=== PATIENT | male | born 1960 | race African-American/Black ===

== ENCOUNTER → 2016-12-16 | Outpatient (CLI) | payer OTHER ==
--- NOTE | 2016-12-16 09:39 | WOMENS IMAGING REPORT ---
EXAM DESCRIPTION: BONE DENSITY HIP/SPINE COMPLETED DATE/TIME: 12/16/2016 8:39 am REASON FOR STUDY: M81.0 M81.0 AGE-RELATED OSTEOPOROSIS W/O CURRENT PATHOLOGICAL FRAC COMPARISON: 2013 TECHNIQUE: Dual-Energy X-ray Absorptiometry (DEXA) of the AP Spine and Hip. LIMITATIONS: None. FINDINGS: LUMBAR SPINE: The bone mineral density (BMD) measured from L1-L4 in the AP projection correlates with a T-score of -2.1, which is osteopenic as defined by the World Health Organization. This represents a 9% decline in bone density compared to 2013 HIP: The bone mineral density (BMD) measured in the left femoral neck at the hip correlates with a T-score of -2.5, which is osteoporotic as defined by the World Health Organization. This is stable compared to 2013 IMPRESSION: 1. LUMBAR SPINE: Osteopenic 2. HIP: Osteoporotic COMMENT: The World Health Organization defines low BMD as follows: T-score: Normal: Greater than -1.0 Osteopenia: Between -1.0 and -2.5 Osteoporosis: Less than -2.5 without fractures Established osteoporosis: Less than -2.5 with fractures In general, you may wish to consider: Diagnosis Treatment Follow-up DEXA Normal BMD Prevention 2-3 years Osteopenia Prevention/Therapy 1-2 years Osteoporosis Therapy Yearly TECHNICAL DOCUMENTATION: JOB ID: [id number] [employer]- All Rights Reserved
== END ==
LOC: WI 07:52
PROVIDERS: ATTEND Internal Medicine
DX: M81.0 Age-related osteoporosis without current pathological fracture (principal)
CPT/HCPCS: 77080

== ENCOUNTER 2018-02-25 09:22 | Emergency (ER) | payer OTHER ==
[2018-02-25] MEDS ORDERED: HYDROCODONE/ACETAMINOPHEN 7.5-325 MG TABLET PO ONE (10:10)
--- NOTE | 2018-02-25 10:14 | ER Document Report ---
ED Medical Screen (RME) - General Chief Complaint: Leg Pain Stated Complaint: RIGHT LEG PAIN Time Seen by Provider: 02/25/18 10:08 Mode of Arrival: Ambulatory Information source: Patient Notes: Patient complained of 10 days of rash on the lower extremities bilaterally. He said the rash started 4 days after he was given an immunosuppressive medication for his Crohn's disease. He said the pain is shooting and tingling and very painful. He said he saw a registered pharmacist and they did a biopsy and told the patient that the rash is from his medication. He was advised to stop that medication. However upon stopping the medication the rash has gotten worse and has not gotten better. Now he has got to the point where the patient cannot walk because of the swelling and the pain on his lower extremities. I have greeted and performed a rapid initial assessment of this patient. A comprehensive ED assessment and evaluation of the patient, analysis of test results and completion of the medical decision making process will be conducted by additional ED providers. TRAVEL OUTSIDE OF THE [place] IN LAST 30 DAYS: No - Related Data Allergies/Adverse Reactions: No Known Allergies Allergy (Unverified 06/08/12 23:11) Past Medical History - Social History Chew tobacco use (# tins/day): No Frequency of alcohol use: None Drug Abuse: None - Past Medical History Cardiac Medical History: Denies: Hx Coronary Artery Disease, Hx Heart Attack, Hx Hypertension Pulmonary Medical History: Reports: Hx Asthma, Hx Pneumonia Denies: Hx Bronchitis, Hx COPD Neurological Medical History: Denies: Hx Cerebrovascular Accident, Hx Seizures Renal/ Medical History: Denies: Hx Peritoneal Dialysis GI Medical History: Reports: Hx Crohn's Disease Musculoskeltal Medical History: Reports Hx Arthritis - ALL OVER, Reports Hx Muscle Spasm Psychiatric Medical History: Reports: Hx Anxiety Past Surgical History: Reports: Hx Bowel Surgery - ENDOSCOPIES, Hx Colostomy, Hx Neurologic Surgery, Hx Rectal Surgery. Denies: Hx Pacemaker - Immunizations Hx Diphtheria, Pertussis, Tetanus Vaccination: Yes - 2008 Physical Exam - Vital signs Vitals: Temp Pulse Resp BP Pulse Ox 97.8 F 101 H 16 112/79 100 02/25/18 09:28 02/25/18 09:28 02/25/18 09:28 02/25/18 09:28 02/25/18 09:28 Course - Vital Signs Vital signs: Temp Pulse Resp BP Pulse Ox 97.8 F 101 H 16 112/79 100 02/25/18 09:28 02/25/18 09:28 02/25/18 09:28 02/25/18 09:28 02/25/18 09:28 Doctor's Discharge - Discharge Referrals: MILO JAMISON [Primary Care Provider] - Follow up as needed
[2018-02-25 10:59] LABS: ABSOLUTE EOSINOPHILS # (AUTO) 0.5 10^3/uL (0.0-0.6); ABSOLUTE LYMPHOCYTES (AUTO) 2.8 10^3/uL (0.5-4.7); ABSOLUTE MONOCYTES (AUTO) 0.8 10^3/uL (0.1-1.4); ABSOLUTE NEUT (AUTO) 3.1 10^3/uL (1.7-8.2); BASOPHILS % (AUTO) 0.6 % (0-2); EOSINOPHILS % (AUTO) 6.4 % (0-6); HEMATOCRIT 39.4 % (37.9-51.0); HEMOGLOBIN 12.8 g/dL (13.5-17.0); LYMPHOCYTES % (AUTO) 38.9 % (13-45); MEAN CORPUSCULAR HEMOGLOBIN 25.4 pg (27.0-33.4); MEAN CORPUSCULAR HGB CONC 32.6 g/dL (32.0-36.0); MEAN CORPUSCULAR VOLUME 78 fl (80-97); MONOCYTES % (AUTO) 11.7 % (3-13); PLATELET COUNT 527 10^3/uL (150-450); RED BLOOD COUNT 5.05 10^6/uL (4.35-5.55); RED CELL DISTRIBUTION WIDTH 19.5 % (11.5-14.0); SEGMENTED NEUTROPHILS % (AUTO) 42.4 % (42-78); TOTAL CELLS COUNTED % (AUTO) 100 %; WHITE BLOOD COUNT 7.3 10^3/uL (4.0-10.5)
[2018-02-25 11:05] LABS: INTERNATIONAL RATION (INR) 0.94
[2018-02-25 11:16] LABS: ALANINE AMINOTRANSFERASE 31 U/L (21-72); ALBUMIN 2.2 g/dL (3.5-5.0); ALKALINE PHOSPHATASE 69 U/L (38-126); ASPARTATE AMINO TRANSFERASE 34 U/L (17-59); BILIRUBIN,DIRECT 0.3 mg/dL (0.0-0.4); BILIRUBIN,TOTAL 0.3 mg/dL (0.2-1.3); BLOOD UREA NITROGEN 15 mg/dL (7-20); CALCIUM 7.1 mg/dL (8.4-10.2); CARBON DIOXIDE 32 mmol/L (22-30); CHLORIDE 101 mmol/L (98-107); GLUCOSE 73 mg/dL (75-110); POTASSIUM 4.1 mmol/L (3.6-5.0); TOTAL PROTEIN 5.3 g/dL (6.3-8.2)
[2018-02-25 11:21] LABS: SODIUM 134.5 mmol/L (137-145)
[2018-02-25 11:22] LABS: ANION GAP 2 (5-19)
[2018-02-25 12:15] LABS: APPEARANCE,URINE CLEAR; BILIRUBIN,URINE NEGATIVE (NEGATIVE); COLOR,URINE YELLOW; GLUCOSE, URINE NEGATIVE (NEGATIVE); KETONES,URINE NEGATIVE (NEGATIVE); LEUKOCYTE ESTERASE,URINE TRACE (NEGATIVE); NITRITE,URINE NEGATIVE (NEGATIVE); PROTEIN,URINE NEGATIVE (NEGATIVE)
[2018-02-25] MEDS ORDERED: HYDROCODONE/ACETAMINOPHEN 5-325 MG TABLET ONE (13:42)
[2018-02-25] MEDS ORDERED: HYDROCODONE/ACETAMINOPHEN 5-325 MG TABLET PO ONE (13:43)
[2018-02-25] MEDS ORDERED: DIPHENHYDRAMINE HCL 50 MG/ML VIAL IV ONE (15:48)
[2018-02-25] MEDS ORDERED: MORPHINE SULFATE 10 MG/ML INJ IV ONE (15:48)
[2018-02-25] MEDS ORDERED: METHYLPREDNISOLONE INJ 125 MG/2 ML SDV IV ONE (16:13)
[2018-02-25] MEDS ORDERED: HYDROCODONE/ACETAMINOPHEN 5-325 MG (6 TAB/ER DISP) PO PRN (18:02)
--- NOTE | 2018-02-25 18:03 | ER Document Report ---
ED Allergic Reaction - General Chief Complaint: Leg Pain Stated Complaint: RIGHT LEG PAIN Time Seen by Provider: 02/25/18 10:08 Mode of Arrival: Ambulatory Notes: Patient is a 58-year-old male who comes in for evaluation of a rash of his bilateral lower extremities. Patient was just started on immune modulator for Crohn's disease. He went to dermatology who told him to stop as it was inducing psoriasis. The patient has stopped the medication but is still having pain and itching in his bilateral lower extremities. Denies fever, nausea, or any other symptoms. He does not have any abdominal pain, diarrhea. TRAVEL OUTSIDE OF THE [place] IN LAST 30 DAYS: No - HPI Onset: Other Onset/Duration: Constant Severity: Moderate Pain Level: 3 Associated symptoms: None Similar symptoms previously: Yes Recently seen / treated by doctor: Yes - Related Data Allergies/Adverse Reactions: No Known Allergies Allergy (Unverified 06/08/12 23:11) Past Medical History - General Information source: Patient - Social History Smoking Status: Never Smoker Chew tobacco use (# tins/day): No Frequency of alcohol use: None Drug Abuse: None Family History: Reviewed & Not Pertinent Patient has suicidal ideation: No Patient has homicidal ideation: No - Past Medical History Cardiac Medical History: Denies: Hx Coronary Artery Disease, Hx Heart Attack, Hx Hypertension Pulmonary Medical History: Reports: Hx Asthma, Hx Pneumonia Denies: Hx Bronchitis, Hx COPD Neurological Medical History: Denies: Hx Cerebrovascular Accident, Hx Seizures Renal/ Medical History: Denies: Hx Peritoneal Dialysis GI Medical History: Reports: Hx Crohn's Disease Musculoskeletal Medical History: Reports Hx Arthritis - ALL OVER, Reports Hx Muscle Spasm Psychiatric Medical History: Reports: Hx Anxiety Past Surgical History: Reports: Hx Bowel Surgery - ENDOSCOPIES, Hx Colostomy, Hx Neurologic Surgery, Hx Rectal Surgery. Denies: Hx Pacemaker - Immunizations Hx Diphtheria, Pertussis, Tetanus Vaccination: Yes - 2008 Review of Systems - Review of Systems Constitutional: No symptoms reported EENT: No symptoms reported Cardiovascular: No symptoms reported Respiratory: No symptoms reported Gastrointestinal: No symptoms reported Genitourinary: No symptoms reported Male Genitourinary: No symptoms reported Musculoskeletal: See HPI Skin: See HPI Hematologic/Lymphatic: No symptoms reported Neurological/Psychological: No symptoms reported Physical Exam - Vital signs Vitals: Temp Pulse Resp BP Pulse Ox 97.8 F 101 H 16 112/79 100 02/25/18 09:28 02/25/18 09:28 02/25/18 09:28 02/25/18 09:28 02/25/18 09:28 Interpretation: Normal - General General appearance: Appears well, Alert - HEENT Head: Normocephalic, Atraumatic Eyes: Normal Pupils: PERRL - Respiratory Respiratory status: No respiratory distress Chest status: Nontender Breath sounds: Normal Chest palpation: Normal - Cardiovascular Rhythm: Regular Heart sounds: Normal auscultation Murmur: No - Abdominal Inspection: Normal Distension: No distension Bowel sounds: Normal Tenderness: Nontender Organomegaly: No organomegaly - Back Back: Normal, Nontender - Extremities General upper extremity: Normal inspection, Nontender, Normal color, Normal ROM , Normal temperature General lower extremity: Tender, Normal ROM, Normal temperature, Normal weight bearing, Other - Bilateral lower extremities with psoriatic changes throughout. No calf tenderness to palpation bilaterally.. No: Sharmila's sign - Neurological Neuro grossly intact: Yes Cognition: Normal Orientation: AAOx4 Sergio Coma Scale Eye Opening: Spontaneous Sergio Coma Scale Verbal: Oriented Sergio Coma Scale Motor: Obeys Commands [place] Coma Scale Total: 15 Speech: Normal Motor strength normal: LUE, RUE, LLE, RLE Sensory: Normal - Psychological Associated symptoms: Normal affect, Normal mood - Skin Skin Temperature: Warm Skin Moisture: Dry Skin Color: Normal Course - Re-evaluation Re-evalutation: 02/25/18 21:09 Patient was also seen by the hospitalist who agrees that this is psoriatic. No evidence for infection. Would work within normal limits. Afebrile. Patient will be discharged home with pain medication and Benadryl as well as steroids. 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 He is to stay safe in her cane. Stable for discharge. Understands and agrees with plan. - Vital Signs Vital signs: Temp Pulse Resp BP Pulse Ox 98 F 86 14 110/60 100 02/25/18 18:43 02/25/18 18:43 02/25/18 18:43 02/25/18 18:43 02/25/18 18:43 - Laboratory Result Diagrams: 02/25/18 10:32 02/25/18 10:32 Laboratory results interpreted by me: 02/25/18 02/25/18 02/25/18 10:32 10:32 10:32 Hgb 12.8 L MCV 78 L MCH 25.4 L RDW 19.5 H Plt Count 527 H Eosinophils % 6.4 H APTT 41.0 H Sodium 134.5 L Carbon Dioxide 32 H Anion Gap 2 L Glucose 73 L Calcium 7.1 L C-Reactive Protein Total Protein 5.3 L Albumin 2.2 L Urine Urobilinogen Ur Leukocyte Esterase Urine Ascorbic Acid 02/25/18 02/25/18 10:32 10:32 Hgb MCV MCH RDW Plt Count Eosinophils % APTT Sodium Carbon Dioxide Anion Gap Glucose Calcium C-Reactive Protein 67.8 H Total Protein Albumin Urine Urobilinogen 2.0 H Ur Leukocyte Esterase TRACE H Urine Ascorbic Acid 20 H Discharge - Discharge Clinical Impression: Psoriasiform dermatitis Allergic reaction Qualifiers: Encounter type: initial encounter Qualified Code(s): T78.40XA - Allergy, unspecified, initial encounter Condition: Stable Disposition: HOME, SELF-CARE Instructions: Acute Allergic Reaction to Drugs ([facility]), Psoriasis ([facility]) Prescriptions: Diphenhydramine HCl [Benadryl] 25 mg PO QID #12 capsule Methylprednisolone [Medrol Dosepack (4 mg/Tab) 21 Tab/Dosepak] 4 mg PO ASDIR PRN #[id number] [email or web address] PRN Reason: Referrals: MILO JAMISON [Primary Care Provider] - Follow up as needed
[2018-02-25 18:45] VITALS: BP 110/60
== END 2018-02-25 18:45 | disposition home or self-care (01) ==
LOC: ER 09:22
DX: L30.8 Other specified dermatitis (principal); T78.40XA Allergy, unspecified, initial encounter; K50.90 Crohn's disease, unspecified, without complications
CPT/HCPCS: 99283; 96374; 96375; 36415; 87040; 85025; 85652; 85610; 85730; 86140; 80053; 81001; J2930; J2270